=== PATIENT | female | born 1980 | race Caucasian/White ===

== ENCOUNTER → 2018-02-26 08:08 | Outpatient (CLI) | payer OTHER, SELFPAY ==
[2018-02-26 09:58] LABS: Alanine Aminotransferase 27 IU/L (9-52); Albumin 4.5 g/dL (3.5-5.0); Albumin Globulin Ratio 1.2 (1.0-2.8); Alkaline Phosphatase 65 U/L (38-126); Aspartate Aminotransferase 25 IU/L (14-36); BUN Creatinine Ratio 14.3 (6-22); Bilirubin Total 0.7 mg/dL (0.2-1.3); Calcium 9.4 mg/dL (8.4-10.2); Cholesterol 244 mg/dL (140-199); Estimated Glomerular Filt Rate > 60.0 mL/min (>60); Globulin 3.7 g/dL (1.7-4.1); Glucose 87 mg/dL (70-100); HDL Cholesterol 66 mg/dL (40-60); HEMOLYSIS < 15 (0-50); LDL Cholesterol Calculated 163 mg/dL (<100); Potassium 4.6 mmol/L (3.4-5.1); Sodium 140 mmol/L (137-145); Total Protein 8.2 g/dL (6.3-8.2); Triglycerides 77 mg/dL (35-150)
[2018-02-26 10:10] LABS: Free T3, Triiodothyronine Free 3.21 pg/mL (2.77-5.27); Free T4, Direct Thyroxine 1.01 ng/dL (0.78-2.19)
[2018-02-26 10:24] LABS: Thyroid Stimulating Hormone 2.34 uIU/mL (0.47-4.68)
== END ==
PROVIDERS: Family Provider Family Medicine; PCP Family Medicine; Visit Provider Family Medicine
DX: E03.9 Hypothyroidism, unspecified (principal); Z13.220 Encounter for screening for lipoid disorders
CPT/HCPCS: 36415; 80053; 80061; 84439; 84443; 84481

== ENCOUNTER → 2018-02-28 16:28 | Outpatient (CLI) | payer OTHER, SELFPAY ==
[2018-03-05 15:32] LABS: Thyroid Peroxidase Antibodies < 1 IU/mL (< 9)
== END ==
PROVIDERS: Family Provider Family Medicine; PCP Family Medicine; Visit Provider Family Medicine
DX: E03.9 Hypothyroidism, unspecified (principal); E28.2 Polycystic ovarian syndrome
CPT/HCPCS: 86376

== ENCOUNTER → 2018-11-19 11:52 | Outpatient (CLI) | payer OTHER, SELFPAY ==
[2018-11-19 13:57] LABS: Free T4, Direct Thyroxine 1.12 ng/dL (0.78-2.19)
[2018-11-19 14:11] LABS: Thyroid Stimulating Hormone 2.25 uIU/mL (0.47-4.68)
== END ==
PROVIDERS: PCP Family Medicine; Visit Provider Family Medicine
DX: E07.9 Disorder of thyroid, unspecified (principal)
CPT/HCPCS: 36415; 84439; 84443; 84481

== ENCOUNTER → 2018-11-25 13:54 | Outpatient (CLI) | payer OTHER, SELFPAY | PROVIDERS: PCP Family Medicine; Visit Provider Physician Assistant | DX: R68.89 Other general symptoms and signs (principal) | CPT/HCPCS: 87400 ==

== ENCOUNTER → 2018-12-17 20:11 | Outpatient (CLI) | payer OTHER, SELFPAY ==
--- NOTE | 2018-12-17 | DI.MRI.S_ITS ---
PROCEDURE: MR SHOULDER RT WO CON INDICATIONS: IMPINGEMENT SYNDROME OF RIGHT SHOULDER TECHNIQUE: Noncontrast oblique coronal T2 fast spin echo with fat saturation, oblique sagittal T1 spin echo and T2 fast spin echo with fat saturation, axial T1 spin echo and T2 fast spin echo with fat saturation through the shoulder. COMPARISON: None. FINDINGS: Image quality: Excellent. Rotator cuff: Mild thickening of the anterior supraspinatus tendon and low-grade intrasubstance signal change. Low-grade partial-thickness bursal sided tear probably less than 50% of tendon thickness. Infraspinatus and teres minor tendons appear intact. Subscapularis tendon appears grossly intact. No atrophy of the rotator cuff musculature. Bones and bursae: No bone marrow contusions or fractures. Mild acromioclavicular joint degeneration. The acromion demonstrates conventional anatomy, without an os acromiale. Moderate subacromial-subdeltoid bursal fluid is present. Capsule and soft tissues: Blunting of the posterior labrum although no discrete intrasubstance signal changes seen. There may be posterior synovial fold, anatomic variant. Elsewhere, no discrete labral tear is identified. The long head of the biceps tendon demonstrates normal location and morphology. The rotator interval appears normal, without fibrosis. The coracohumeral ligament is normal in thickness. IMPRESSION: Supraspinatus tendinopathy with low-grade partial thickness bursal sided tear, less than 50% of tendon thickness. Moderate subacromial/subdeltoid bursitis. Blunted appearance of the posterior labrum although no intrasubstance fluid signal intensity to suggest discrete tear. This could be age-related chronic degeneration. Dictated by: Eben Simon M.D. on 12/18/2018 at 9:32 Approved by: Eben Simon M.D. on 12/18/2018 at 9:39
== END ==
PROVIDERS: Family Provider Family Medicine; PCP Family Medicine; Visit Provider Orthopaedic Surgery
DX: M75.41 Impingement syndrome of right shoulder (principal); M75.111 Incomplete rotator cuff tear or rupture of right shoulder, not specified as traumatic; M75.51 Bursitis of right shoulder
CPT/HCPCS: 73221

== ENCOUNTER → 2019-02-07 15:17 | Outpatient (CLI) | payer OTHER, SELFPAY ==
--- NOTE | 2019-02-07 15:19 | DI.US.S_ITS ---
PROCEDURE: US PELVIC COMPLETE INDICATIONS: IUD PLACEMENT, OVARIAN CYST? TECHNIQUE: Real-time scanning was performed of the pelvic organs, with image documentation. Additional endovaginal scanning was necessary due to incomplete visualization of the adnexal and endometrial structures by transabdominal scanning. COMPARISON: [facility], US, US PELVIC COMPLETE, 04/02/2018, 8:25. FINDINGS: Transabdominal scanning: Limited scanning through the kidneys shows no hydronephrosis. No pathologic free abdominal or pelvic fluid. Endovaginal scanning: Uterus: Uterus is normal in size at 8.7 x 4.0 x 5.0 cm. The endometrium measures 5.6 mm in combined thickness. Intrauterine device in expected position. Ovaries: Ovaries normal size measuring 3.8 x 1.8 x 1.9 cm on the right and 4.0 x 2.5 x 2.3 cm on the left. Simple cyst associated with the left ovary measuring 1.8 x 1.5 x 1.3 cm. IMPRESSION: 1. Intrauterine device in expected position and a simple cyst associated with the left ovary. Dictated by: Aaron Jennings [facility] Interpreted: Claudia Donovan MD on 02/07/2019 at 16:29 Approved by: Claudia Donovan M.D. on 02/10/2019 at 17:34
== END ==
PROVIDERS: Family Provider Family Medicine; PCP Family Medicine; Visit Provider Family Medicine
DX: N83.292 Other ovarian cyst, left side (principal); Z30.431 Encounter for routine checking of intrauterine contraceptive device
CPT/HCPCS: 76830; 76856

== ENCOUNTER → 2019-04-28 09:25 | Outpatient (CLI) | payer OTHER, SELFPAY ==
[2019-04-28 10:12] LABS: Add Manual Diff / Slide Review NO; Basophils Absolute Auto 0 /uL (0-100); Basophils Percent Auto 0.3 % (0-2); Eosinophils Absolute Auto 100 /uL (0-450); Eosinophils Percent Auto 1.7 % (2-4); Hematocrit 40.9 % (36-46); Hemoglobin 14.2 g/dL (12.0-16.0); Lymphocytes Absolute Auto 1700 /uL (1100-4500); Lymphocytes Percent Auto 37.9 % (25-40); Mean Corpuscular HGB Conc 34.8 % (30-36); Mean Corpuscular Hemoglobin 30.7 PG (26-34); Mean Corpuscular Volume 88.2 fL (80-100); Monocytes Absolute Auto 300 /uL (0-900); Monocytes Percent Auto 6.4 % (3-14); Neutrophils Absolute Auto 2400 /uL (1500-7000); Neutrophils Percent Auto 53.7 % (50-75); Platelet Count 167 X10^3/uL (150-400); Red Blood Cell Count 4.63 X10^6/uL (4.0-5.2); Red Cell Distribution Width 13.3 % (11.6-14.8); White Blood Cell Count 4.4 X10^3/uL (4.5-11.0)
[2019-04-28 10:30] LABS: Alanine Aminotransferase 8 IU/L (9-52); Albumin 4.2 g/dL (3.5-5.0); Albumin Globulin Ratio 1.2 (1.0-2.8); Alkaline Phosphatase 71 U/L (38-126); Aspartate Aminotransferase 23 IU/L (14-36); Bilirubin Total 0.7 mg/dL (0.2-1.3); Blood Urea Nitrogen 9 mg/dL (7-17); Carbon Dioxide 29 mmol/L (22-32); Chloride 101 mmol/L (98-107); Cholesterol 187 mg/dL (140-199); Estimated Glomerular Filt Rate > 60.0 mL/min (>60); Globulin 3.4 g/dL (1.7-4.1); Glucose 89 mg/dL (70-100); HDL Cholesterol 54 mg/dL (40-60); HEMOLYSIS < 15 (0-50); LDL Cholesterol Calculated 124 mg/dL (<100); Sodium 138 mmol/L (137-145); Total Protein 7.6 g/dL (6.3-8.2); Triglycerides 43 mg/dL (35-150)
[2019-04-28 10:46] LABS: Free T3, Triiodothyronine Free 3.48 pg/mL (2.77-5.27); Free T4, Direct Thyroxine 0.98 ng/dL (0.78-2.19)
[2019-04-28 11:00] LABS: Thyroid Stimulating Hormone 2.42 uIU/mL (0.47-4.68)
[2019-04-30 16:31] LABS: Thyroid Peroxidase Antibodies < 1 IU/mL (< 9)
[2019-05-03 14:25] LABS: Triiodothyronine T3 Reverse 18 ng/dL (8-25)
== END ==
PROVIDERS: PCP Family Medicine; Visit Provider Family Medicine
DX: E03.9 Hypothyroidism, unspecified (principal)
CPT/HCPCS: 36415; 80053; 80061; 84439; 84443; 84481; 84482; 85025; 86376

== ENCOUNTER → 2019-07-02 10:44 | Outpatient (CLI) | payer OTHER, SELFPAY ==
[2019-07-02 12:12] LABS: Free T3, Triiodothyronine Free 3.33 pg/mL (2.77-5.27); Free T4, Direct Thyroxine 1.09 ng/dL (0.78-2.19)
[2019-07-02 12:25] LABS: Thyroid Stimulating Hormone 1.12 uIU/mL (0.47-4.68)
[2019-07-04 16:49] LABS: Triiodothyronine T3 Total 109 ng/dL (76-181)
[2019-07-07 18:53] LABS: Triiodothyronine T3 Reverse 20 ng/dL (8-25)
== END ==
PROVIDERS: PCP Family Medicine; Visit Provider Family Medicine
DX: E03.9 Hypothyroidism, unspecified (principal); E06.3 Autoimmune thyroiditis
CPT/HCPCS: 36415; 84439; 84443; 84480; 84481; 84482

== ENCOUNTER → 2019-08-05 13:16 | Outpatient (CLI) | payer OTHER, SELFPAY ==
--- NOTE | 2019-08-05 | DI.MRI.S_ITS ---
PROCEDURE: MR KNEE RT WO CON INDICATIONS: Pain in right knee TECHNIQUE: Noncontrast sagittal PD fast spin echo and T2 fast spin echo with fat saturation, sagittal 3-D FLASH with fat saturation; coronal T1 spin echo and PD fast spin echo with fat saturation, and axial PD fast spin echo with fat saturation through the knee. COMPARISON: [facility], CR, XR KNEE ARTHRITIC SERIES RT, 07/17/2019, 10:54. FINDINGS: Image quality: Excellent. Menisci: There is intrasubstance degeneration involving the posterior horn of the medial medial meniscus. No олег medial meniscal tear. The lateral meniscus demonstrates normal morphology and internal signal. The meniscal root ligaments appear intact. Cruciate ligaments: The anterior and posterior cruciate ligaments appear intact. Medial structures: The medial collateral ligament appears intact. The semimembranosus tendon insertions and meniscocapsular junction appear intact. Visualized portions of the pes anserinus tendons appear normal. No abnormal bursal fluid. Lateral structures: The lateral collateral ligament and biceps femoris tendon appear intact. The popliteus tendon appears normal. Iliotibial band appears normal. Anterior structures: There is mild thickening and increased signal in the proximal patellar tendon near the patellar insertion, consistent with tendinitis. There is a small amount of prepatellar bursal fluid consistent with bursitis. The quadriceps tendon is intact. Patellar alignment is normal. No femoral trochlear dysplasia or ventral trochlear prominence. No edema in the infrapatellar fat pad. Bones and cartilage: No bone marrow contusions or fractures. The cartilage of the medial and lateral femorotibial compartments, as well as the patellofemoral compartment, appears normal in thickness. Joint space: There is trace knee joint effusion. No Sheldon's cyst. Normal appearing synovial plicae are incidentally noted. IMPRESSION: 1. Intrasubstance degeneration involving the posterior horn of the medial meniscus. 2. Patellar tendinitis. 3. Mild prepatellar bursitis. Dictated by: Su Haq M.D. on 08/05/2019 at 16:25 Approved by: Su Haq M.D. on 08/05/2019 at 18:31
== END ==
PROVIDERS: PCP Family Medicine; Visit Provider Orthopaedic Surgery
DX: M25.561 Pain in right knee (principal); M76.51 Patellar tendinitis, right knee; M70.41 Prepatellar bursitis, right knee
CPT/HCPCS: 73721

== ENCOUNTER → 2019-09-02 08:14 | Outpatient (CLI) | payer OTHER, SELFPAY ==
[2019-09-02 09:03] LABS: Add Manual Diff / Slide Review NO; Basophils Absolute Auto 0 /uL (0-100); Basophils Percent Auto 0.5 % (0-2); Eosinophils Absolute Auto 100 /uL (0-450); Eosinophils Percent Auto 1.7 % (2-4); Hematocrit 41.2 % (36-46); Hemoglobin 14.5 g/dL (12.0-16.0); Lymphocytes Absolute Auto 1500 /uL (1100-4500); Lymphocytes Percent Auto 36.3 % (25-40); Mean Corpuscular HGB Conc 35.2 % (30-36); Mean Corpuscular Hemoglobin 31.2 PG (26-34); Mean Corpuscular Volume 88.8 fL (80-100); Monocytes Absolute Auto 300 /uL (0-900); Monocytes Percent Auto 6.1 % (3-14); Neutrophils Absolute Auto 2300 /uL (1500-7000); Neutrophils Percent Auto 55.4 % (50-75); Platelet Count 171 X10^3/uL (150-400); Red Blood Cell Count 4.64 X10^6/uL (4.0-5.2); Red Cell Distribution Width 12.7 % (11.6-14.8); White Blood Cell Count 4.2 X10^3/uL (4.5-11.0)
[2019-09-02 09:56] LABS: Ferritin 36.6 ng/mL (6.27-137)
[2019-09-06 15:55] LABS: Triiodothyronine T3 Reverse 16 ng/dL (8-25)
== END ==
PROVIDERS: PCP Family Medicine; Visit Provider Family Medicine
DX: E03.9 Hypothyroidism, unspecified (principal); E28.2 Polycystic ovarian syndrome
CPT/HCPCS: 36415; 82728; 84482; 85025

== ENCOUNTER → 2020-05-04 08:47 | Outpatient (CLI) | payer OTHER, SELFPAY ==
[2020-05-04 09:54] LABS: Add Manual Diff / Slide Review NO; Basophils Absolute Auto 0 /uL (0-100); Basophils Percent Auto 0.3 % (0-2); Eosinophils Absolute Auto 100 /uL (0-450); Eosinophils Percent Auto 2.8 % (2-4); Hematocrit 40.8 % (36-46); Lymphocytes Absolute Auto 1600 /uL (1100-4500); Lymphocytes Percent Auto 34.1 % (25-40); Mean Corpuscular HGB Conc 34.4 % (30-36); Mean Corpuscular Hemoglobin 30.8 PG (26-34); Mean Corpuscular Volume 89.7 fL (80-100); Monocytes Absolute Auto 300 /uL (0-900); Monocytes Percent Auto 6.5 % (3-14); Neutrophils Absolute Auto 2600 /uL (1500-7000); Neutrophils Percent Auto 56.3 % (50-75); Platelet Count 183 X10^3/uL (150-400); Red Blood Cell Count 4.55 X10^6/uL (4.0-5.2); Red Cell Distribution Width 12.4 % (11.6-14.8); White Blood Cell Count 4.6 X10^3/uL (4.5-11.0)
[2020-05-04 10:20] LABS: HEMOLYSIS < 15 (0-50); Iron 94 ug/dL (37-170)
[2020-05-04 10:22] LABS: Alanine Aminotransferase 17 IU/L (<35); Albumin 4.3 g/dL (3.5-5.0); Albumin Globulin Ratio 1.5 (1.0-2.8); Alkaline Phosphatase 67 U/L (38-126); Aspartate Aminotransferase 25 IU/L (14-36); BUN Creatinine Ratio 15.8 (6-22); Bilirubin Total 0.6 mg/dL (0.2-1.3); Blood Urea Nitrogen 9 mg/dL (7-17); Calcium 9.5 mg/dL (8.4-10.2); Carbon Dioxide 31 mmol/L (22-32); Chloride 103 mmol/L (98-107); Cholesterol 176 mg/dL (140-199); Estimated Glomerular Filt Rate > 60.0 mL/min (>60); Globulin 2.9 g/dL (1.7-4.1); Glucose 87 mg/dL (70-100); HDL Cholesterol 55 mg/dL (40-60); HEMOLYSIS < 15 (0-50); LDL Cholesterol Calculated 112 mg/dL (<100); Potassium 4.3 mmol/L (3.4-5.1); Sodium 138 mmol/L (137-145); Total Protein 7.2 g/dL (6.3-8.2); Triglycerides 47 mg/dL (35-150)
[2020-05-04 10:31] LABS: Percent Iron Saturation 32 % (15-50); Total Iron Binding Capacity 293 ug/dL (265-497); Transferrin 213 mg/dL (206-381)
[2020-05-04 10:55] LABS: Ferritin 77 ng/mL (6-137)
== END ==
PROVIDERS: PCP Family Medicine; Referring Provider Family Medicine; Visit Provider Family Medicine
DX: Z13.1 Encounter for screening for diabetes mellitus (principal); E03.9 Hypothyroidism, unspecified; E28.2 Polycystic ovarian syndrome; E78.5 Hyperlipidemia, unspecified
CPT/HCPCS: 36415; 80053; 80061; 82728; 83540; 83550; 84443; 85025

== ENCOUNTER → 2020-05-26 17:05 | Outpatient (CLI) | payer OTHER, SELFPAY ==
--- NOTE | 2020-05-26 17:07 | DI.MG.S_ITS ---
BILATERAL DIGITAL SCREENING MAMMOGRAM 3D/2D WITH CAD: 05/26/2020 CLINICAL: Baseline exam. Routine screening. No prior exams were available for comparison. The tissue of both breasts is heterogeneously dense. This may lower the sensitivity of mammography. Current study was also evaluated with a Computer Aided Detection (CAD) system. There are benign diffuse calcifications in both breasts. No significant masses, calcifications, or other findings are seen in either breast. IMPRESSION: BENIGN There is no mammographic evidence of malignancy. A 1 year screening mammogram is recommended. This exam was interpreted at Station ID: [id number]. NOTE: For mammograms, a report in lay terms will be sent to the patient. Approximately 15% of breast malignancies will not be visualized mammographically. In the management of a palpable breast mass, a negative mammogram must not discourage biopsy of a clinically suspicious lesion. Electronically Signed By: Lucas mancuso/ricardo:05/27/2020 08:57:50 letter sent: Normal Exam ACR BI-RADS Category 2: Benign Finding(s) 3342F
== END ==
PROVIDERS: PCP Family Medicine; Referring Provider Family Medicine; Visit Provider Family Medicine
DX: Z12.31 Encounter for screening mammogram for malignant neoplasm of breast (principal)
CPT/HCPCS: 77063; 77067

== ENCOUNTER → 2020-06-04 16:46 | Outpatient (CLI) | payer OTHER, SELFPAY ==
[2020-06-04 17:50] LABS: Free T3, Triiodothyronine Free 3.17 pg/mL (2.77-5.27); Free T4, Direct Thyroxine 1.12 ng/dL (0.78-2.19)
[2020-06-04 18:03] LABS: Thyroid Stimulating Hormone 0.873 uIU/mL (0.47-4.68)
== END ==
PROVIDERS: PCP Family Medicine; Referring Provider Family Medicine; Visit Provider Family Medicine
DX: E03.9 Hypothyroidism, unspecified (principal)
CPT/HCPCS: 36415; 84439; 84443; 84481

== ENCOUNTER → 2020-12-23 16:38 | Outpatient (CLI) | payer OTHER, SELFPAY ==
[2020-12-23] MEDS: COVID-19 VACC #1, MRNA(MOD) 100 MCG/0.5 ML VIAL IM (16:46)
== END ==
PROVIDERS: PCP Family Medicine; Visit Provider Internal Medicine
DX: Z23 Encounter for immunization (principal)
CPT/HCPCS: 0011A; 91301

== ENCOUNTER → 2021-01-20 16:00 | Outpatient (CLI) | payer OTHER, SELFPAY ==
[2021-01-20] MEDS: COVID-19 VACC #2, MRNA(MOD) 100 MCG/0.5 ML VIAL IM (16:14)
== END ==
PROVIDERS: PCP Family Medicine; Visit Provider Internal Medicine
DX: Z23 Encounter for immunization (principal)
CPT/HCPCS: 0012A; 91301

== ENCOUNTER → 2021-06-16 08:11 | Outpatient (CLI) | payer OTHER, SELFPAY ==
[2021-06-16 09:51] LABS: Add Manual Diff / Slide Review NO; Basophils Absolute Auto 0 /uL (0-100); Basophils Percent Auto 0.6 % (0-2); Eosinophils Absolute Auto 100 /uL (0-450); Eosinophils Percent Auto 1.8 % (2-4); Hematocrit 41.8 % (36-46); Lymphocytes Absolute Auto 2000 /uL (1100-4500); Lymphocytes Percent Auto 40.9 % (25-40); Mean Corpuscular HGB Conc 33.4 % (30-36); Mean Corpuscular Hemoglobin 30.3 PG (26-34); Mean Corpuscular Volume 90.7 fL (80-100); Monocytes Absolute Auto 300 /uL (0-900); Monocytes Percent Auto 6.5 % (3-14); Neutrophils Absolute Auto 2500 /uL (1500-7000); Neutrophils Percent Auto 50.2 % (50-75); Platelet Count 182 X10^3/uL (150-400); Red Cell Distribution Width 12.4 % (11.6-14.8)
[2021-06-16 10:22] LABS: HEMOLYSIS < 15 (0-50); Iron 77 ug/dL (37-170)
[2021-06-16 10:26] LABS: Alanine Aminotransferase 18 IU/L (<35); Albumin 4.2 g/dL (3.5-5.0); Albumin Globulin Ratio 1.3 (1.0-2.8); Alkaline Phosphatase 60 U/L (38-126); Aspartate Aminotransferase 27 IU/L (14-36); BUN Creatinine Ratio 22.8 (6-22); Bilirubin Total 0.5 mg/dL (0.2-1.3); Blood Urea Nitrogen 13 mg/dL (7-17); Carbon Dioxide 29 mmol/L (22-32); Chloride 102 mmol/L (98-107); Cholesterol 192 mg/dL (140-199); Estimated Glomerular Filt Rate > 60.0 mL/min (>60); Globulin 3.3 g/dL (1.7-4.1); Glucose 85 mg/dL (70-100); HDL Cholesterol 55 mg/dL (40-60); HEMOLYSIS < 15 (0-50); LDL Cholesterol Calculated 124 mg/dL (<100); Potassium 4.1 mmol/L (3.4-5.1); Sodium 137 mmol/L (137-145); Total Protein 7.5 g/dL (6.3-8.2); Triglycerides 64 mg/dL (35-150)
[2021-06-16 10:35] LABS: Percent Iron Saturation 28 % (15-50); Total Iron Binding Capacity 278 ug/dL (265-497); Transferrin 213 mg/dL (206-381)
[2021-06-16 10:57] LABS: Ferritin 77 ng/mL (6-137)
== END ==
PROVIDERS: PCP Family Medicine; Referring Provider Family Medicine; Visit Provider Family Medicine
DX: E78.5 Hyperlipidemia, unspecified (principal); E03.9 Hypothyroidism, unspecified; N92.0 Excessive and frequent menstruation with regular cycle
CPT/HCPCS: 36415; 80053; 80061; 82728; 83540; 83550; 84443; 85025

== ENCOUNTER → 2021-07-11 09:11 | Outpatient (CLI) | payer OTHER, SELFPAY ==
--- NOTE | 2021-07-11 09:14 | DI.US.S_ITS ---
PROCEDURE: US PELVIC COMPLETE INDICATIONS: MID-CYCLE PAIN; ENDOMETRIOSIS TECHNIQUE: Real-time scanning was performed of the pelvic organs, with image documentation. Additional endovaginal scanning was necessary due to incomplete visualization of the adnexal and endometrial structures by transabdominal scanning. COMPARISON: [facility], US, PELVIC COMPLETE, 05/22/2017, 10:10. [facility], US, PELVIC COMPLETE, 12/05/2017, 9:48. [facility], , US PELVIC COMPLETE, 02/07/2019, 15:46. FINDINGS: Uterus: Uterus is normal in size at 7.0 x 4.2 x 6.3 cm. At the scar, there is an irregular collection of fluid measuring 9 x 6 x 19 mm extending into the myometrium. Intrauterine device in place. Endometrium is thin but not well visualized. Ovaries: Right and left ovaries measure 2.9 x 1.9 x 1.8 cm and 1.9 x 1.5 x 2.4 cm respectively. Both ovaries have appropriate echotexture and vascularity. Other: No pathologic free abdominal or pelvic fluid. IMPRESSION: Irregular collection of fluid at the scar, suspicious for endometrioma. Consider MRI confirmation. Intrauterine device in place Approved by: Timothy Fernandes M.D. on 07/11/2021 at 11:55
== END ==
PROVIDERS: PCP Family Medicine; Referring Provider Family Medicine; Visit Provider Family Medicine
DX: E28.2 Polycystic ovarian syndrome (principal); N80.9 Endometriosis, unspecified; L90.5 Scar conditions and fibrosis of skin; Z97.5 Presence of (intrauterine) contraceptive device
CPT/HCPCS: 76830; 76856

== ENCOUNTER → 2021-07-14 12:30 | Outpatient (CLI) | payer OTHER, SELFPAY ==
--- NOTE | 2021-07-14 | DI.MG.S_ITS ---
BILATERAL DIGITAL SCREENING MAMMOGRAM 3D/2D WITH CAD: 07/14/2021 CLINICAL: Routine screening. Comparison is made to exam dated: 05/26/2020 [facility]. The tissue of both breasts is heterogeneously dense. This may lower the sensitivity of mammography. Current study was also evaluated with a Computer Aided Detection (CAD) system. There are benign diffuse calcifications in both breasts. No significant masses, calcifications, or other findings are seen in either breast. There has been no significant interval change. IMPRESSION: BENIGN There is no mammographic evidence of malignancy. A 1 year screening mammogram is recommended. This exam was interpreted at Station ID: [id number]. NOTE: For mammograms, a report in lay terms will be sent to the patient. Approximately 15% of breast malignancies will not be visualized mammographically. In the management of a palpable breast mass, a negative mammogram must not discourage biopsy of a clinically suspicious lesion. Electronically Signed By: Levi sanders/ricardo:07/14/2021 14:58:09 letter sent: Normal Exam ACR BI-RADS Category 2: Benign Finding(s) 3342F
== END ==
PROVIDERS: PCP Family Medicine; Referring Provider Family Medicine; Visit Provider Family Medicine
DX: Z12.31 Encounter for screening mammogram for malignant neoplasm of breast (principal)
CPT/HCPCS: 77063; 77067

== ENCOUNTER → 2021-11-29 16:09 | Outpatient (CLI) | payer OTHER, SELFPAY ==
[2021-11-29 20:03] LABS: TSH w/ Reflex to FT4 1.72 uIU/mL (0.47-4.68)
== END ==
PROVIDERS: PCP Family Medicine; Referring Provider Family Medicine; Visit Provider Family Medicine
DX: E03.9 Hypothyroidism, unspecified (principal)
CPT/HCPCS: 36415; 84443

== ENCOUNTER → 2022-06-26 08:59 | Outpatient (CLI) | payer OTHER, SELFPAY ==
[2022-06-26 10:19] LABS: Alanine Aminotransferase 18 IU/L (<35); Albumin 4.4 g/dL (3.5-5.0); Albumin Globulin Ratio 1.3 (1.0-2.8); Alkaline Phosphatase 68 U/L (38-126); Aspartate Aminotransferase 21 IU/L (14-36); BUN Creatinine Ratio 14.8 (6-22); Bilirubin Total 0.8 mg/dL (0.2-1.3); Blood Urea Nitrogen 9 mg/dL (7-17); Calcium 9.3 mg/dL (8.4-10.2); Carbon Dioxide 28 mmol/L (22-32); Chloride 100 mmol/L (98-107); Cholesterol 227 mg/dL (140-199); Estimated Glomerular Filt Rate > 60 mL/min (>60); Globulin 3.4 g/dL (1.7-4.1); Glucose 89 mg/dL (70-100); HEMOLYSIS < 15 (0-50); Potassium 4.3 mmol/L (3.4-5.1); Sodium 137 mmol/L (137-145); Total Protein 7.8 g/dL (6.3-8.2)
[2022-06-26 10:49] LABS: TSH w/ Reflex to FT4 1.94 uIU/mL (0.47-4.68)
[2022-06-28 18:02] LABS: HDL Cholesterol 55 mg/dL (40-60); Triglycerides 83 mg/dL (35-150)
[2022-06-28 18:14] LABS: LDL Cholesterol Direct 146 mg/dL (<100)
== END ==
PROVIDERS: PCP Family Medicine; Referring Provider Family Medicine; Visit Provider Family Medicine
DX: Z00.00 Encounter for general adult medical examination without abnormal findings (principal); E78.5 Hyperlipidemia, unspecified
CPT/HCPCS: 36415; 80053; 82465; 83718; 83721; 84443; 84478

== ENCOUNTER → 2022-07-28 09:17 | Outpatient (CLI) | payer OTHER, SELFPAY ==
--- NOTE | 2022-07-28 09:20 | DI.MG.S_ITS ---
BILATERAL DIGITAL SCREENING MAMMOGRAM 3D/2D WITH CAD: 07/28/2022 CLINICAL: Routine screening. Comparison is made to exams dated: 07/14/2021 mammogram and 05/26/2020 mammogram - [facility]. Both breasts are extremely dense, which lowers the sensitivity of mammography (category d />75% glandular tissue). Current study was also evaluated with a Computer Aided Detection (CAD) system. There are benign diffuse calcifications in both breasts. No significant masses, calcifications, or other findings are seen in either breast. There has been no significant interval change. IMPRESSION: BENIGN There is no mammographic evidence of malignancy. A 1 year screening mammogram is recommended. Based on Tyrer-Cuzick model (a risk assessment model), the patient's lifetime risk is 21.1% and her 10 year risk is 3.5%. If a patient has an elevated risk, a more comprehensive evaluation should be considered and/or a referral to a genetic counselor. The [place] [employer], [employer], and NCCN Guidelines advise the consideration of Breast MRI as an adjunct to screening mammography in patients whose Lifetime risk to develop breast cancer is 20% or higher. This exam was interpreted at Station ID: [id number]. NOTE: For mammograms, a report in lay terms will be sent to the patient. Approximately 15% of breast malignancies will not be visualized mammographically. In the management of a palpable breast mass, a negative mammogram must not discourage biopsy of a clinically suspicious lesion. Electronically Signed By: Sherif ragnel/ricardo:07/28/2022 10:06:25 letter sent: Normal Exam ACR BI-RADS Category 2: Benign Finding(s) 3342F
== END ==
PROVIDERS: PCP Family Medicine; Referring Provider Family Medicine; Visit Provider Family Medicine
DX: Z12.31 Encounter for screening mammogram for malignant neoplasm of breast (principal)
CPT/HCPCS: 77063; 77067

== ENCOUNTER → 2023-02-01 13:08 | Outpatient (CLI) | payer OTHER, SELFPAY ==
[2023-02-01 14:32] LABS: Alanine Aminotransferase 87 IU/L (<35); Albumin 3.8 g/dL (3.5-5.0); Albumin Globulin Ratio 1.4 (1.0-2.8); Alkaline Phosphatase 53 U/L (38-126); Aspartate Aminotransferase 57 IU/L (14-36); BUN Creatinine Ratio 21.6 (6-22); Bilirubin Total 0.2 mg/dL (0.2-1.3); Blood Urea Nitrogen 11 mg/dL (7-17); Calcium 8.3 mg/dL (8.4-10.2); Carbon Dioxide 27 mmol/L (22-32); Chloride 106 mmol/L (98-107); Estimated Glomerular Filt Rate > 60 mL/min (>60); Globulin 2.8 g/dL (1.7-4.1); Glucose 79 mg/dL (70-100); HEMOLYSIS < 15 (0-50); Potassium 4.3 mmol/L (3.4-5.1); Sodium 140 mmol/L (137-145); Total Protein 6.6 g/dL (6.3-8.2)
[2023-02-01 14:49] LABS: Free T3, Triiodothyronine Free 3.34 pg/mL (2.77-5.27); Free T4, Direct Thyroxine 0.84 ng/dL (0.78-2.19)
[2023-02-01 15:03] LABS: Thyroid Stimulating Hormone 3.25 uIU/mL (0.47-4.68)
[2023-02-02 09:34] LABS: Thyroid Peroxidase Antibodies <9 IU/mL (0-34)
== END ==
PROVIDERS: PCP Family Medicine; Referring Provider Family Medicine; Visit Provider Family Medicine
DX: E03.9 Hypothyroidism, unspecified (principal)
CPT/HCPCS: 36415; 80053; 84439; 84443; 84481; 86376

== ENCOUNTER → 2023-02-12 12:47 | Outpatient (CLI) | payer OTHER, SELFPAY ==
--- NOTE | 2023-02-12 12:49 | DI.US.S_ITS ---
PROCEDURE: US ABDOMEN COMPLETE INDICATIONS: TRANSAMINITIS TECHNIQUE: Real-time scanning was performed of the abdominal and retroperitoneal organs, with image documentation. COMPARISON: None. FINDINGS: Liver: 16 cm. Echotexture is within normal limits. No focal lesion identified. Gallbladder: Within normal limits Biliary ducts: Intrahepatic bile ducts are non-dilated. Extrahepatic bile duct caliber measures 3 mm. Normal is 6-7 mm or less in diameter, or 10 mm or less post-cholecystectomy. Pancreas: Visualized portions of the pancreas are sonographically normal. Spleen: Spleen is normal in size and homogeneous in echotexture. Kidneys: Kidneys are normal in size and echotexture. Right kidney measures 11 cm long; left kidney measures 14 cm long. No hydronephrosis or nephrolithiasis. No solid masses. Aorta: Visualized aorta is normal in caliber at less than 3 cm. Iliacs: Proximal common iliac arteries are normal in caliber at less than 2.5 cm. IVC: Intrahepatic inferior vena cava is patent. Miscellaneous: No free abdominal fluid. IMPRESSION: No acute sonographic abnormality in the abdomen. Gallbladder and biliary tree are within normal limits. No significant heterogeneity in the hepatic echotexture. No focal lesion identified sonographically. Dictated by: Anibal Castelan M.D. on 02/13/2023 at 10:24 Approved by: Anibal Castelan M.D. on 02/13/2023 at 10:25
== END ==
PROVIDERS: PCP Family Medicine; Referring Provider Family Medicine; Visit Provider Family Medicine
DX: R74.01 Elevation of levels of liver transaminase levels (principal)
CPT/HCPCS: 76700

== ENCOUNTER → 2023-02-28 07:28 | Outpatient (CLI) | payer OTHER, SELFPAY ==
[2023-02-28 08:03] LABS: Alanine Aminotransferase 19 IU/L (<35); Albumin 4.4 g/dL (3.5-5.0); Albumin Globulin Ratio 1.4 (1.0-2.8); Alkaline Phosphatase 60 U/L (38-126); Aspartate Aminotransferase 23 IU/L (14-36); Bilirubin Total 0.7 mg/dL (0.2-1.3); Blood Urea Nitrogen 13 mg/dL (7-17); Calcium 9.1 mg/dL (8.4-10.2); Carbon Dioxide 32 mmol/L (22-32); Chloride 100 mmol/L (98-107); Estimated Glomerular Filt Rate > 60 mL/min (>60); Globulin 3.1 g/dL (1.7-4.1); Glucose 87 mg/dL (70-100); HEMOLYSIS < 15 (0-50); Potassium 4.5 mmol/L (3.4-5.1); Sodium 137 mmol/L (137-145); Total Protein 7.5 g/dL (6.3-8.2)
[2023-02-28 08:36] LABS: TSH w/ Reflex to FT4 3.99 uIU/mL (0.47-4.68)
== END ==
PROVIDERS: PCP Family Medicine; Referring Provider Family Medicine; Visit Provider Family Medicine
DX: E03.9 Hypothyroidism, unspecified (principal); R74.01 Elevation of levels of liver transaminase levels
CPT/HCPCS: 36415; 80053; 84443

== ENCOUNTER → 2023-03-23 11:55 | Outpatient (CLI) | payer OTHER, SELFPAY ==
--- NOTE | 2023-03-23 11:56 | DI.MG.S_ITS ---
UNILATERAL RIGHT DIGITAL DIAGNOSTIC MAMMOGRAM 3D/2D: 03/23/2023 CLINICAL: Right breast lump. Comparison is made to exams dated: 07/28/2022 mammogram, 07/14/2021 mammogram, and 05/26/2020 mammogram - [facility]. The right breast is extremely dense, which lowers the sensitivity of mammography (category d />75% glandular tissue). There are benign diffuse calcifications in the right breast that are not significantly changed. There is a new 3 cm x 3.5 cm oval equal density mass in the right breast at 10 o'clock middle depth. This correlates as palpated and with triangle skin marker. No other significant masses or calcifications are seen in the breast. IMPRESSION: INCOMPLETE: NEEDS ADDITIONAL IMAGING EVALUATION The new 3 cm x 3.5 cm oval equal density mass in the right breast likely represents a cyst and is indeterminate. An ultrasound is recommended for further evaluation and is scheduled to immediately follow this examination. Based on Tyrer-Cuzick model (a risk assessment model), the patient's lifetime risk is 21.1% and her 10 year risk is 3.5%. If a patient has an elevated risk, a more comprehensive evaluation should be considered and/or a referral to a genetic counselor. The [place] [employer], [employer], and NCCN Guidelines advise the consideration of Breast MRI as an adjunct to screening mammography in patients whose Lifetime risk to develop breast cancer is 20% or higher. This exam was interpreted at Station ID: [id number]. NOTE: For mammograms, a report in lay terms will be sent to the patient. Approximately 15% of breast malignancies will not be visualized mammographically. In the management of a palpable breast mass, a negative mammogram must not discourage biopsy of a clinically suspicious lesion. Electronically Signed By: Lucas Jalloh M.D. aty/:03/23/2023 12:34:12 copy to: Jessica Masterson M.D., [facility] [employer], ph: [phone], fax: [phone] ACR BI-RADS Category 0: Incomplete 3340F
--- NOTE | 2023-03-23 11:56 | DI.US.S_ITS ---
LIMITED ULTRASOUND OF RIGHT BREAST: 03/23/2023 CLINICAL: Patient returns today to evaluate a focal asymmetry in the right breast. Comparison is made to exams dated: 03/23/2023 mammogram, 07/28/2022 mammogram, 07/14/2021 mammogram, and 05/26/2020 mammogram - [facility]. Real-time ultrasound of the right breast 10 o'clock region was performed. Verde scale images of the real-time examination were reviewed. There are benign diffuse calcifications in the right breast that are not significantly changed. There is a 2.8 cm x 2.4 cm x 2.8 cm oval cyst with a single smooth internal wall versus two opposing cysts in the right breast at 10 o'clock middle depth 2 cm from the nipple. This oval cyst is anechoic. This correlates as palpated, with mammography findings, and area of clinical concern. Color flow imaging demonstrates that there is no vascularity present. IMPRESSION: BENIGN There is no sonographic evidence of malignancy. The 2.8 cm x 2.4 cm x 2.8 cm oval cyst in the right breast is consistent with a simple cyst and is benign. A 1 year screening mammogram is recommended. Recommend clinical follow up for persistent or worsening symptoms, or development of any clinically suspicious findings. Findings and recommendations were conveyed to the patient during today's evaluation. This exam was interpreted at Station ID: [id number]. Electronically Signed By: Lucas Jalloh M.D. aty/:03/23/2023 13:38:41 copy to: Jessica Masterson M.D., [facility], [facility] [employer] [facility], ph: [phone], fax: [phone] letter sent: Clinical Evaluation Ultrasound BI-RADS: 2 Benign
== END ==
PROVIDERS: PCP Family Medicine; Referring Provider Physician Assistant; Visit Provider Physician Assistant
DX: R92.8 Other abnormal and inconclusive findings on diagnostic imaging of breast (principal); N60.01 Solitary cyst of right breast
CPT/HCPCS: 76642; 77065; G0279

== ENCOUNTER → 2023-05-14 08:20 | Outpatient (CLI) | payer OTHER, SELFPAY ==
[2023-05-14 10:21] LABS: Cholesterol 192 mg/dL (140-199); HDL Cholesterol 52 mg/dL (40-60); LDL Cholesterol Calculated 133 mg/dL (<100); Triglycerides 35 mg/dL (35-150)
[2023-05-14 10:56] LABS: TSH w/ Reflex to FT4 2.39 uIU/mL (0.47-4.68)
== END ==
PROVIDERS: PCP Family Medicine; Referring Provider Family Medicine; Visit Provider Family Medicine
DX: E03.9 Hypothyroidism, unspecified (principal); E78.2 Mixed hyperlipidemia
CPT/HCPCS: 36415; 80061; 84443

== ENCOUNTER → 2023-06-15 | Outpatient (CLI) | payer OTHER, SELFPAY ==
--- NOTE | 2023-06-15 12:11 | DI.MRI.S_ITS ---
BREAST MRI OF BOTH BREASTS: 06/15/2023 CLINICAL: Genetic Susceptibility to breast cancer. TECHNIQUE: The patient was placed prone in a dedicated breast imaging coil. Precontrast axial STIR and 3D FLASH without fat saturation sequences were obtained. Both before and after bolus injection of contrast, sequential 1-minute axial 3D FLASH with fat saturation sequences for 3 time points, with subtraction images and maximum intensity projections (MIP's) generated. Delayed sagittal FLASH images with fat saturation were also obtained. Computer-aided detection, including computer algorithm analysis of MRI image data for lesion detection and characterization, pharmacokinetic analysis, with further physician review for interpretation, was performed. COMPARISON: [facility], , SCREENING MAMMO BI, 07/28/2022, 9:32. [facility], DIAGNOSTIC MAMMO UNILAT RT, 03/23/2023, 12:18. Image quality: Excellent. There is moderate background parenchymal enhancement. There is extremely dense fibroglandular tissue in the bilateral breast. Right breast: Multiple cysts are noted in the right breast. These are scattered throughout the right breast with the largest measuring approximately 3.0 cm in size. No skin or nipple abnormality seen. Otherwise, no suspicious mass, non-mass enhancement, or architectural distortion. No axillary or internal mammary chain adenopathy. Left breast: Multiple cysts are scattered throughout the left breast. Largest measures approximately 1.3 cm in size. No suspicious mass, non-mass enhancement, or architectural distortion. No skin or nipple abnormality seen. No axillary or internal mammary chain adenopathy. Miscellaneous: Visualized portions of the upper abdomen and chest appear unremarkable. IMPRESSION: BENIGN 1. No MRI evidence for malignancy in the right breast. 2. No MRI evidence for malignancy in the left breast. Recommend continued annual screening mammography with consideration to continue annual adjunct screening breast MRI. COMMENT: The imaging literature indicates that a negative contrast breast MRI examination has a high sensitivity and a moderate specificity for detecting and excluding invasive carcinomas to a detection threshold of 3-5 mm; nonetheless, appropriate clinical and mammographic follow-up are recommended. MRI is not sensitive for detecting DCIS (ductal carcinoma in situ) and may not detect large invasive neoplasms that show only minimal enhancement such as mucinous carcinoma. If there are suspicious calcifications or clinically worrisome palpable masses, then biopsy should still be considered. Invasive neoplasms can be hidden by co-existent and benign enhancement caused by mastitis, hormone therapy effects, radiation therapy, , and recent biopsy or surgery. False positive examinations can occur in a number of circumstances, including breasts that have recently been subject to invasive procedures and those that contain atypical ductal hyperplasia, hormonally stimulated glandular tissue, fat necrosis, or radial scars. This exam was interpreted at Station ID: [id number]. Electronically Signed By: Lucas Jalloh M.D. aty/:06/22/2023 12:13:21 copy to: Jessica Masterson M.D., [facility], ph: [phone], fax: [phone] ACR BI-RADS Category 2: Benign Finding(s) 3345L
== END ==
PROVIDERS: PCP Family Medicine; Referring Provider Family Medicine; Visit Provider Family Medicine
DX: Z15.01 Genetic susceptibility to malignant neoplasm of breast (principal); N60.01 Solitary cyst of right breast; N60.02 Solitary cyst of left breast
CPT/HCPCS: 77049; A9579

== ENCOUNTER → 2024-02-15 10:17 | Outpatient (CLI) | payer SELFPAY | PROVIDERS: PCP Family Medicine; Referring Provider Family Medicine; Visit Provider Family Medicine | DX: Z13.828 Encounter for screening for other musculoskeletal disorder (principal) ==

== ENCOUNTER → 2024-03-04 11:33 | Outpatient (CLI) | payer OTHER, SELFPAY ==
--- NOTE | 2024-03-04 11:35 | DI.MG.S_ITS ---
BILATERAL DIGITAL SCREENING MAMMOGRAM 3D/2D WITH CAD: 03/04/2024 CLINICAL: Routine screening. Comparison is made to exams dated: 07/28/2022 mammogram, 07/14/2021 mammogram, and 05/26/2020 mammogram - [facility]. Both breasts are extremely dense, which lowers the sensitivity of mammography (category d />75% glandular tissue). Current study was also evaluated with a Computer Aided Detection (CAD) system. There are benign diffuse calcifications in both breasts. No significant masses, calcifications, or other findings are seen in either breast. There has been no significant interval change. IMPRESSION: BENIGN There is no mammographic evidence of malignancy. A 1 year screening mammogram is recommended. Based on Tyrer-Cuzick model (a risk assessment model), the patient's lifetime risk is 21.0% and her 10 year risk is 3.8%. If a patient has an elevated risk, a more comprehensive evaluation should be considered and/or a referral to a genetic counselor. The [place] [employer], [employer], and NCCN Guidelines advise the consideration of Breast MRI as an adjunct to screening mammography in patients whose Lifetime risk to develop breast cancer is 20% or higher. This exam was interpreted at Station ID: [id number]. NOTE: For mammograms, a report in lay terms will be sent to the patient. Approximately 15% of breast malignancies will not be visualized mammographically. In the management of a palpable breast mass, a negative mammogram must not discourage biopsy of a clinically suspicious lesion. Electronically Signed By: Claudia nolan/ricardo:03/04/2024 13:21:45 copy to: Jessica Masterson M.D., [facility], ph: [phone], fax: [phone] letter sent: Normal Exam ACR BI-RADS Category 2: Benign Finding(s) 3343C
== END ==
PROVIDERS: PCP Family Medicine; Referring Provider Family Medicine; Visit Provider Family Medicine
DX: Z12.31 Encounter for screening mammogram for malignant neoplasm of breast (principal); R92.343 Mammographic extreme density, bilateral breasts
CPT/HCPCS: 77063; 77067

== ENCOUNTER → 2024-03-28 07:35 | Outpatient (CLI) | payer OTHER, SELFPAY ==
[2024-03-28 09:21] LABS: Alanine Aminotransferase 16 IU/L (<35); Albumin 4.4 g/dL (3.5-5.0); Albumin Globulin Ratio 1.4 (1.0-2.8); Alkaline Phosphatase 63 U/L (38-126); Aspartate Aminotransferase 24 IU/L (14-36); BUN Creatinine Ratio 20.3 (6-22); Bilirubin Total 0.7 mg/dL (0.2-1.3); Blood Urea Nitrogen 12 mg/dL (7-17); Calcium 9.2 mg/dL (8.4-10.2); Carbon Dioxide 25 mmol/L (22-32); Chloride 105 mmol/L (98-107); Cholesterol 196 mg/dL (140-199); Estimated Glomerular Filt Rate > 60 mL/min (>60); Globulin 3.2 g/dL (1.7-4.1); Glucose 86 mg/dL (70-100); HDL Cholesterol 63 mg/dL (40-60); HEMOLYSIS < 15 (0-50); LDL Cholesterol Calculated 122 mg/dL (<100); Potassium 4.5 mmol/L (3.4-5.1); Sodium 136 mmol/L (137-145); Total Protein 7.6 g/dL (6.3-8.2); Triglycerides 56 mg/dL (35-150)
[2024-03-28 09:50] LABS: TSH w/ Reflex to FT4 4.66 uIU/mL (0.47-4.68)
== END ==
LOC: LAB 07:36
PROVIDERS: PCP Family Medicine; Referring Provider Family Medicine; Visit Provider Family Medicine
DX: E03.9 Hypothyroidism, unspecified (principal); E78.2 Mixed hyperlipidemia
CPT/HCPCS: 36415; 80053; 80061; 84443

== ENCOUNTER → 2024-03-28 15:42 | Outpatient (CLI) | payer OTHER, SELFPAY ==
[2024-03-28 16:08] LABS: Add Manual Diff / Slide Review NO; Basophils Absolute Auto 0 /uL (0-100); Basophils Percent Auto 0.6 % (0-2); Eosinophils Absolute Auto 0 /uL (0-450); Eosinophils Percent Auto 0.8 % (2-4); Hematocrit 38.5 % (36-46); Lymphocytes Absolute Auto 1700 /uL (1100-4500); Lymphocytes Percent Auto 33.6 % (25-40); Mean Corpuscular HGB Conc 33.9 % (30-36); Mean Corpuscular Hemoglobin 29.9 PG (26-34); Mean Corpuscular Volume 88.4 fL (80-100); Monocytes Absolute Auto 300 /uL (0-900); Monocytes Percent Auto 6.2 % (3-14); Neutrophils Absolute Auto 3100 /uL (1500-7000); Neutrophils Percent Auto 58.8 % (50-75); Platelet Count 192 X10^3/uL (150-400); Red Blood Cell Count 4.36 X10^6/uL (4.0-5.2); Red Cell Distribution Width 15.7 % (11.6-14.8); White Blood Cell Count 5.2 X10^3/uL (4.5-11.0)
[2024-03-28 16:55] LABS: Free T4, Direct Thyroxine 0.77 ng/dL (0.78-2.19)
[2024-03-28 17:18] LABS: Ferritin 21 ng/mL (6-137)
== END ==
PROVIDERS: PCP Family Medicine; Referring Provider Family Medicine; Visit Provider Family Medicine
DX: L65.9 Nonscarring hair loss, unspecified (principal); E03.9 Hypothyroidism, unspecified
CPT/HCPCS: 36415; 80053; 80061; 82728; 84439; 84443; 85025

== ENCOUNTER → 2024-04-14 08:49 | Outpatient (CLI) | payer OTHER, SELFPAY ==
--- NOTE | 2024-04-14 09:54 | DI.MRI.S_ITS ---
BREAST MRI OF BOTH BREASTS: 04/14/2024 CLINICAL: Dense breast surveillance. TECHNIQUE: The patient was placed prone in a dedicated breast imaging coil. Precontrast axial STIR and 3D FLASH without fat saturation sequences were obtained. Both before and after bolus injection of contrast, sequential 1-minute axial 3D FLASH with fat saturation sequences for 3 time points, with subtraction images and maximum intensity projections (MIP's) generated. Delayed sagittal FLASH images with fat saturation were also obtained. 20 cc ProHance gadolinium based IV contrast was administered without complication. Computer-aided detection, including computer algorithm analysis of MRI image data for lesion detection and characterization, pharmacokinetic analysis, with further physician review for interpretation, was performed. COMPARISON: [facility], MR, MR BREAST BI WO/W CON, 06/15/2023, 12:21. FINDINGS: Image quality: Excellent. There is marked background parenchymal enhancement. Extremely dense glandular tissue is present bilaterally. Right breast: There are several T2 hyperintense cysts and numerous T1 and T2 mildly hyperintense cysts in the right breast. Several have changed size since the previous exam, specifically the largest previously seen has decreased in size, now measuring 1.1 x 1.8 cm, previously 2.6 x 2.9 cm. There are no new areas of mass or significant non masslike enhancement. Left breast: Multiple cysts, both T2 and T1 hyperintense, or redemonstrated scattered throughout the breast, several have decreased in size, however the largest remains relatively stable at 1.3 x 1.0 cm, previously 1.4 x 0.9 cm. Post-contrast, there is no suspicious mass or non masslike enhancement. Miscellaneous: No axillary or internal mammary chain adenopathy. The visible portions of the chest wall, liver, heart, and lungs appear normal. IMPRESSION: BENIGN No new suspicious mass or non masslike enhancement in either breast. No MR evidence of malignancy. Continue annual screening with mammography and breast MRI. BIRADS two, benign COMMENT: The imaging literature indicates that a negative contrast breast MRI examination has a high sensitivity and a moderate specificity for detecting and excluding invasive carcinomas to a detection threshold of 3-5 mm; nonetheless, appropriate clinical and mammographic follow-up are recommended. MRI is not sensitive for detecting DCIS (ductal carcinoma in situ) and may not detect large invasive neoplasms that show only minimal enhancement such as mucinous carcinoma. If there are suspicious calcifications or clinically worrisome palpable masses, then biopsy should still be considered. Invasive neoplasms can be hidden by co-existent and benign enhancement caused by mastitis, hormone therapy effects, radiation therapy, , and recent biopsy or surgery. False positive examinations can occur in a number of circumstances, including breasts that have recently been subject to invasive procedures and those that contain atypical ductal hyperplasia, hormonally stimulated glandular tissue, fat necrosis, or radial scars. This exam was interpreted at Station ID: [id number]. Electronically Signed By: Claudia Donovan M.D. krg/:04/14/2024 13:13:14 copy to: Jessica Masterson M.D., [facility], ph: [phone], fax: [phone] letter sent: Normal Exam ACR BI-RADS Category 2: Benign Finding(s) 5444P
== END ==
PROVIDERS: PCP Family Medicine; Referring Provider Family Medicine; Visit Provider Family Medicine
DX: R92.343 Mammographic extreme density, bilateral breasts (principal); N60.01 Solitary cyst of right breast; N60.02 Solitary cyst of left breast; Z91.89 Other specified personal risk factors, not elsewhere classified
CPT/HCPCS: 77049; A9579

== ENCOUNTER → 2024-06-26 10:11 | Outpatient (CLI) | payer OTHER, SELFPAY ==
[2024-06-26 11:29] LABS: Free T3, Triiodothyronine Free 3.44 pg/mL (2.77-5.27)
== END ==
PROVIDERS: PCP Family Medicine; Referring Provider Family Medicine; Visit Provider Family Medicine
DX: E03.9 Hypothyroidism, unspecified (principal)
CPT/HCPCS: 36415; 84443; 84481

== ENCOUNTER → 2024-12-11 11:07 | Outpatient (CLI) | payer OTHER, SELFPAY ==
[2024-12-11 12:41] LABS: TSH w/ Reflex to FT4 1.07 uIU/mL (0.47-4.68)
== END ==
PROVIDERS: PCP Family Medicine; Referring Provider Family Medicine; Visit Provider Family Medicine
DX: E03.9 Hypothyroidism, unspecified (principal); Z79.899 Other long term (current) drug therapy
CPT/HCPCS: 36415; 84443

== ENCOUNTER → 2025-03-16 14:35 | Outpatient (CLI) | payer OTHER, SELFPAY ==
--- NOTE | 2025-03-16 14:37 | DI.MG.S_ITS ---
MM screening mammo BI: 03/16/2025. BI-RADS: 2 CLINICAL: 44-year old female for bilateral screening mammogram. Tyrer-Cuzick lifetime risk of 16.1%. No personal or first-degree family history of breast cancer. PRIOR EXAMS 04/14/2024, 03/04/2024, 06/15/2023, 03/23/2023, 07/28/2022, 07/14/2021, 05/26/2020. MAMMOGRAPHY TECHNIQUE: 2D and 3D (tomosynthesis) digital mammographic views obtained, with additional images as needed for full coverage. Current study was also evaluated with a Computer Aided Detection (CAD) system. DENSITY D. The breasts are extremely dense, which lowers the sensitivity of mammography. MAMMOGRAPHY FINDINGS Bilateral: Benign-appearing calcifications noted. There are no suspicious masses, calcifications, or other findings in the breast. IMPRESSION: * No evidence of malignancy with benign findings. RECOMMENDATIONS Bilateral * Annual screening mammography. OVERALL ASSESSMENT CATEGORY BI-RADS-2: Benign. The [employer] recommends annual screening mammography beginning at age 40 for women with average risk of breast cancer. ELECTRONICALLY SIGNED: Sherif Shields M.D. on 03/17/2025 at 08:06:00 AM PT Interpreting Station ID: [id number]
== END ==
PROVIDERS: PCP Family Medicine; Referring Provider Family Medicine; Visit Provider Family Medicine
DX: Z12.31 Encounter for screening mammogram for malignant neoplasm of breast (principal); R92.343 Mammographic extreme density, bilateral breasts
CPT/HCPCS: 77063; 77067

== ENCOUNTER → 2025-04-13 07:15 | Outpatient (CLI) | payer OTHER, SELFPAY ==
[2025-04-13 07:57] LABS: Hematocrit 42.7 % (36-46); Hemoglobin 14.8 g/dL (12.0-16.0); Mean Corpuscular HGB Conc 34.6 % (30-36); Mean Corpuscular Hemoglobin 31.5 PG (26-34); Mean Corpuscular Volume 91.2 fL (80-100); Platelet Count 180 X10^3/uL (150-400)
[2025-04-13 08:17] LABS: Alanine Aminotransferase 20 IU/L (<35); Albumin 4.4 g/dL (3.5-5.0); Albumin Globulin Ratio 1.5 (1.0-2.8); Alkaline Phosphatase 63 U/L (38-126); Blood Urea Nitrogen 12 mg/dL (7-17); Calcium 9.1 mg/dL (8.4-10.2); Carbon Dioxide 28 mmol/L (22-32); Chloride 102 mmol/L (98-107); Cholesterol 200 mg/dL (140-199); Estimated Glomerular Filt Rate > 60 mL/min (>60); Globulin 2.9 g/dL (1.7-4.1); Glucose 89 mg/dL (70-99); HDL Cholesterol 56 mg/dL (40-60); HEMOLYSIS < 15 (0-50); Potassium 4.2 mmol/L (3.4-5.1); Sodium 137 mmol/L (137-145); Total Protein 7.3 g/dL (6.3-8.2); Triglycerides 65 mg/dL (35-150)
[2025-04-13 08:34] LABS: Free T3, Triiodothyronine Free 3.31 pg/mL (2.77-5.27); Free T4, Direct Thyroxine 0.95 ng/dL (0.78-2.19)
[2025-04-13 08:48] LABS: Thyroid Stimulating Hormone 1.79 uIU/mL (0.47-4.68)
== END ==
PROVIDERS: PCP Family Medicine; Referring Provider Family Medicine; Visit Provider Family Medicine
DX: E03.9 Hypothyroidism, unspecified (principal); E78.2 Mixed hyperlipidemia; Z79.899 Other long term (current) drug therapy
CPT/HCPCS: 36415; 80053; 80061; 84439; 84443; 84481; 85027

== ENCOUNTER → 2025-04-28 08:05 | Outpatient (CLI) | payer OTHER, SELFPAY ==
[2025-04-28 10:01] LABS: Vitamin D 25 Hydroxy (D3) 69.1 ng/mL (30.0-100.0)
== END ==
PROVIDERS: PCP Family Medicine
DX: L65.9 Nonscarring hair loss, unspecified (principal)
CPT/HCPCS: 36415; 82306

== ENCOUNTER 2025-07-09 12:15 | Day surgery (SDC) | payer OTHER, SELFPAY ==
[2025-07-09 12:35] VITALS: BMI 23.3
--- NOTE | 2025-07-09 12:42 | P.HP_ITS ---
History of Present Illness History of Present Illness Date Patient Seen: 07/09/25 Time Patient Seen: 12:42 Chief complaint: [facility] Narrative: Danae is a 45-year-old woman here for her first screening colonoscopy. No family history of colon cancer. She is otherwise healthy. [facility] Medical History (Updated 07/09/25 @ 12:43 by Williams Young MD) Overweight (BMI 25.0-29.9) Ovarian cyst Hyperlipidemia Hypothyroid Shingles (2000) Plantar warts (2000) Foot pain (1998) Left ankle pain (1990) Elbow fracture, right (1994) Thrombocytopenia Chicken pox (1981) Chronic headaches (1992) Eczema (2012) Irregular periods/menstrual cycles (1991) History of heavy periods (1991) Migraines (1992) Painful menstrual periods (1991) Surgical History S/P laparoscopic procedure (~2017) Anesthesia complication History of bone cyst (1993) Status post laparoscopy (09/15/16) Status post delivery (2013) Status post delivery (2011) History of third molar tooth extraction (2003) Status post tubal ligation (02/16/14) Status post delivery (2009) Family History Father Age: 73 Skin cancer High cholesterol Hypothyroid Grandfather Prostate cancer Skin cancer Heart disease Hypertension TIA (transient ischemic attack) Ischemic cardiomyopathy Grandmother Hypertension Mental health problem TIA (transient ischemic attack) Dementia Stroke Mother Age: 73 Lymphoma, non-Hodgkin's Cancer Hypertension High cholesterol Hypothyroidism due to Michael's thyroiditis Grandfather Heart disease Congestive heart failure Grandmother Heart disease Hypertension Social History marital status: number of children: 3 education level: college 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, makes [employer] Smoking Status: Never smoker alcohol intake: current substance use type: does not use Meds Home Medications and Allergies Home Medications ?Medication ?Instructions ?Recorded ?Confirmed ?Type levonorgestrel (Mirena) intrauterine 01/31/22 History levothyroxine 75 mcg capsule 75 mcg PO DAILY #90 caps 04/14/25 07/09/25 Rx sodium,potassium,mag sulfates 17.5 See Rx Instructions PO .COMPLEX 05/22/25 Rx gram-3.13 gram-1.6 gram oral soln #354 mL (Suprep Bowel Prep Kit) semaglutide 2 mg/dose (8 mg/3 mL) 2 mg (0.75 mL) SUBCU T QWEEK #3 mL 06/26/25 07/09/25 Rx subcutaneous pen injector (Ozempic) estradiol 0.025 mg/24 hr 1 patch transdermal 2XW #8 e a 07/08/25 Rx semiweekly transdermal patch Allergies Allergy/AdvReac Type Severity Reaction Status Date / Time Sulfa (Sulfonamide Allergy Mild RASH Verified 04/14/25 11:04 Antibiotics) (SULFA (SULFONAMIDE ANTIBIOTICS)) Exam Const General: healthy appearing Assessment & Plan Assessment and plan (1) Colon cancer screening: Status: Acute Plan Colonoscopy Time-Based Coding :: [TOTAL MINUTES] spent with patient and on the chart (including review of chart, obtaining history, exam, reviewing outside data, placing orders, documenting exam and treatment plan, and counseling patient) on [DATE]. PROFEE Director Of Physiotherapy Services Document charge(s): No
[2025-07-09 12:46] VITALS: BP 114/70; PULSE 70; RESP 14; TEMP 36.2; O2SAT 98
[2025-07-09] MEDS: LACTATED RINGERS 1,000 ML 42 ML IV (12:47)
--- NOTE | 2025-07-09 13:14 | PM.OP.COLON ---
Operative Date/Time/Diagnoses Date of procedure: 07/09/25 Time of procedure: 13:14 Pre-op diagnosis: Colon cancer screening Post-op diagnosis: same Procedure & Clinicians Study performed: Colonoscopy Same procedure(s) as scheduled: Yes Surgeon: Williams Young Anesthesia Type: MAC +/- Procedure Notes Procedure in detail: Surgeon: Williams Young MD Anesthesia: Silvia Rojas CRNA Procedure: The patient was brought to the endoscopy suite, placed in left lateral decubitus position. The patient was connected to monitoring devices. A time-out was performed. Sedation was administered. Once the patient was adequately sedated, a digital rectal exam was performed and was normal. The scope was then inserted and advanced to the cecum where the appendiceal orifice was identified and photographed. The scope was then slowly withdrawn over greater than 6 minutes. The mucosa was thoroughly inspected. No abnormalities were found. The scope was retroflexed in the rectum. The scope was straightened and removed. The patient was awakened and brought to recovery. Scope withdrawal time: 7 minutes Sedation time: 15 minutes EBL: 0 Findings: Normal colon Post-procedure Recommendations: Colonoscopy in 10 years Disposition: PACU
[2025-07-09 13:16] VITALS: BP 116/53; PULSE 72; RESP 16; TEMP 36.1; O2SAT 100
[2025-07-09 13:20] VITALS: BP 124/53; PULSE 75; RESP 20; O2SAT 100
[2025-07-09 13:24] VITALS: BP 123/59; PULSE 71; RESP 24; TEMP 36.4; O2SAT 100
[2025-07-09 13:28] VITALS: BP 131/58; PULSE 64; RESP 28; O2SAT 100
== END 2025-07-09 13:46 | disposition home or self-care (01) ==
PROVIDERS: PCP Family Medicine; Referring Provider Surgery; Visit Provider Surgery
PROC: 0DJD8ZZ Inspection of Lower Intestinal Tract, Via Natural or Artificial Opening Endoscopic (ICD-10-PCS; CPT 45378; principal; 2025-07-09 13:30)
DX: Z12.11 Encounter for screening for malignant neoplasm of colon (principal)
CPT/HCPCS: 45378; J2704

== ENCOUNTER → 2025-09-02 16:48 | Outpatient (CLI) | payer OTHER, SELFPAY ==
--- NOTE | 2025-09-02 16:51 | DI.US.S_ITS ---
PROCEDURE: US PELVIC COMPLETE INDICATIONS: BREAK THROUGH BLEEDING. IUD. PCOS/ENDOMETRIOSIS/ITHOMECELE TECHNIQUE: Real-time scanning was performed of the pelvic organs, with image documentation. Additional endovaginal scanning was necessary due to incomplete visualization of the adnexal and endometrial structures by transabdominal scanning. COMPARISON: [facility], US, US PELVIC COMPLETE, 02/07/2019, 15:46. FINDINGS: Uterus: Uterus is anteverted and normal in size at 6.5 x 5.6 x 4.5 cm. The myometrium is heterogeneous. The endometrium is not well seen. The intrauterine device cross arms are seen within the fundal uterus, the midline IUD bar is not seen. Small fluid pocket within the lower uterine segment scar measuring 9 x 12 x 5 mm with low-level echoes. Ovaries: The right ovary measures 3.6 x 3.6 x 2.1 cm, with a calculated ovarian volume of 14.1 cc. Right ovarian cyst with irregular internal reddy measuring 2.7 x 2.7 x 1.3 cm. The left ovary measures 3.1 x 2.2 x 1.7 cm, with a calculated ovarian volume of 5.9 cc. Less than 12 follicles can be seen in each ovary. No adnexal masses are seen. Prominent right adnexal vasculature. Other: No pathologic free abdominal or pelvic fluid. IMPRESSION: Endometrium is not well seen. Intrauterine device is partially seen with the cross arms in the fundal aspect of the uterus, likely appropriately positioned. The midline IUD bar is not seen. Consider follow-up ultrasound if clinically indicated. Small fluid pocket within the lower uterine segment scar measuring up to 12 mm with low-level echoes. Right ovarian cyst with irregular internal reddy measuring up to 2.7 cm, possibly a hemorrhagic component. Consider follow-up ultrasound. Prominent right adnexal vasculature. This is nonspecific and can be seen with pelvic congestion syndrome, recommend clinical correlation. We strive to produce accurate, complete, and clear reports of imaging services. To assist us in improving patient care, this report was composed using standard report templates and voice recognition software. Therefore, it may contain abnormal punctuation, insertions and/or omissions. Occasional wrong-word or sound-alike substitutions may occur. Though we review the report and make efforts to correct it, we do recommend that the report be read carefully in proper context to recognize any text inaccuracies. Dictated by: Shlomo Giraldo M.D. on 09/02/2025 at 20:19 Approved by: Shlomo Giraldo M.D. on 09/02/2025 at 20:26
== END ==
PROVIDERS: PCP Family Medicine; Referring Provider Obstetrics & Gynecology; Visit Provider Obstetrics & Gynecology
DX: N93.9 Abnormal uterine and vaginal bleeding, unspecified (principal); E03.9 Hypothyroidism, unspecified; E28.9 Ovarian dysfunction, unspecified; N83.201 Unspecified ovarian cyst, right side; N85.A Isthmocele; Z97.5 Presence of (intrauterine) contraceptive device
CPT/HCPCS: 76830; 76856

== ENCOUNTER → 2025-09-21 10:20 | Outpatient (CLI) | payer OTHER, SELFPAY | PROVIDERS: PCP Family Medicine; Referring Provider Family Medicine; Visit Provider Family Medicine | DX: Z13.828 Encounter for screening for other musculoskeletal disorder (principal) ==